=== PATIENT | male | born 1970 | race Caucasian/White ===

== ENCOUNTER → 2017-04-18 | Outpatient (CLI) | payer OTHER ==
[~2017-04-18] MED LIST: ALBU90OI INH; DESYREL PO; Desyrel150 MG PO; EYE DROPS ADVAN15 ML BOTHEYES; FLUT1DIS5 INH; FOLI1 PO; IBUP800 PO; Keppra PO; LIDO5TP TOP; LISI20 PO; Naprosyn500 MG PO; Omeprazole20 M1 PO; PANT40 PO; THIA100 PO; VITAMIN B-121000 MCG PO
[2017-04-18 11:26] LABS: Albumin, Blood 3.5 g/dL (3.4-5.0); Anion Gap 7 mmol/L (6-16); Blood Urea Nitrogen 18 mg/dL (8-24); Bun/Creatinine Ratio 15.8 (12.0-20.0); CO2, Blood 22 mmol/L (21-32); Calcium, Blood 9.6 mg/dL (8.5-10.1); Chloride, Blood 105 mmol/L (98-108); Creatinine, Blood 1.14 mg/dL (0.60-1.20); Glomerular Filtration Rate >60 (60-); Glucose, Blood 114 mg/dL (70-99); Phosphorus, Blood 3.6 mg/dL (2.5-4.9); Potassium, Blood 4.7 mmol/L (3.5-5.5); Sodium, Blood 134 mmol/L (136-145)
[2017-04-18 16:07] LABS: Creatinine, Urine Random 60.4 mg/dL (27.00-270.00); Protein, Urine Random 29.6 mg/dL (0.0-11.9)
== END | disposition home or self-care (01) ==
LOC: OLS 09:40
PROVIDERS: Internal Medicine
DX: N18.9 Chronic kidney disease, unspecified (principal)
CPT/HCPCS: 36415; 80069; 82570; 84156

== ENCOUNTER 2018-05-14 15:42 | Inpatient (IN) | payer OTHER ==
[~2018-05-14] VITALS: Ht 175.3 cm; Wt 99.2 kg
[2018-05-14 16:52] LABS: BASOPHILS ABSOLUTE AUTO 0.04 K/mm3 (0.00-0.23); BASOPHILS PERCENT AUTO 0 % (0-2); EOSINOPHILS ABSOLUTE AUTO 0.04 K/mm3 (0.00-0.68); EOSINOPHILS PERCENT AUTO 0 % (0-6); Hematocrit 33.8 % (37.0-53.0); Hemoglobin 11.5 g/dL (13.5-17.5); IMMATURE GRAN ABSOLUTE AUTO 0.26 K/mm3 (0.00-0.10); IMMATURE GRAN PERCENT AUTO 2 % (0-1); LYMPHOCYTES ABSOLUTE AUTO 1.04 K/mm3 (0.84-5.20); LYMPHOCYTES PERCENT AUTO 8 % (21-46); MONOCYTES ABSOLUTE AUTO 0.85 K/mm3 (0.16-1.47); MONOCYTES PERCENT AUTO 6 % (4-13); Mean Corpuscular Volume 103 fL (80-100); Mean Platelet Volume 10.2 fL (9.1-12.4); NEUTROPHILS ABSOLUTE AUTO 11.35 K/mm3 (1.96-9.15); NEUTROPHILS PERCENT AUTO 84 % (41-73); Platelet Count 158 K/mm3 (150-400); RDW Coefficient Variation 14.2 % (11.7-14.2); RDW Standard Deviation 54.2 fL (35.1-46.3); Red Blood Cell Count 3.29 M/mm3 (4.30-5.90); White Blood Cell Count 13.58 K/mm3 (4.00-11.30)
[2018-05-14 17:21] LABS: Alanine Aminotransfer (ALT/SGP 68 U/L (12-78); Albumin, Blood 1.9 g/dL (3.4-5.0); Albumin/Globulin Ratio 0.3 (0.8-1.8); Alk Phos 211 U/L (50-136); Anion Gap 7 mmol/L (6-16); Aspartate Aminotrans (AST/SGOT 156 U/L (12-37); Blood Urea Nitrogen 29 mg/dL (8-24); CO2, Blood 20 mmol/L (21-32); Calcium, Blood 8.3 mg/dL (8.5-10.1); Chloride, Blood 105 mmol/L (98-108); Globulin, Blood 6.9 g/dL (2.2-4.0); Glomerular Filtration Rate >60 (60-); Glucose, Blood 92 mg/dL (70-99); Sodium, Blood 132 mmol/L (136-145); Total Protein, Blood 8.8 g/dL (6.4-8.2)
[2018-05-14 18:18] LABS: Source, Urine Clean Catch
[2018-05-14 18:23] LABS: Blood, Urine Neg (Neg); Glucose Qualitative, Urine Neg (Neg); Ketones, Urine Neg (Neg); Leukocyte Esterase, Urine 1+ (Neg); Nitrite, Urine Neg (Neg); Protein, Urine 2+ (Neg); Urobilinogen, Urine 2+ (Normal); pH, Urine 6.5 (5.0-8.0)
[2018-05-14 18:32] LABS: Appearance, Urine Clear (Clear); Bilirubin, Urine 3+ (Neg); Color, Urine Yellow (P-Yellow)
[2018-05-14 18:33] LABS: Bacteria Few /hpf; Red Blood Cells, Urine 0-2 /hpf (0-2); Squamous Epithelial Cells Rare /hpf (Few); White Blood Cells, Urine 0-2 /hpf (0-5)
--- NOTE | 2018-05-15 05:00 | NUR ---
SHIFT SUMMARY 2219 RECEIVED PT TO RM 358 VIA W/C FROM ER. PT TX SELF TO BED WITH SBA. PT THEN TO [facility] [place] FOR BM. RECEIVED REPORT FROM SWATHI LONDON, PT TO ER WITH C/O ABD PAIN. HX OF CIRRHOSIS, ASCITES, AND ELEVATED LIVER ENZYMES. SKIN JAUNDICE. CT DONE IN ER SHOWING MASS ON LUNGS; POSSIBLE PNM OR BIOPSY TO BE DONE IF DOESN'T RESPOND TO ABX. PT REPORTED PAIN WITH COUGHING AND DEEP BREATHING. DR ANDERSON NOTIFIED. NEW ORDERS RECEIVED. PT REPORTED DRINKING ALCOHOL DAILY, EXCEPT FOR PAST 2 DAYS, HE HASN'T FELT WELL. S/O TO RM WITH PT, BUT LEFT AFTER ADMIT COMPLETE. PT WENT TO SLEEP AFTER SOUP AND SANDWICH GIVEN. DENIED FURTHER NEEDS. CALL LT IN REACH.
[2018-05-15 05:58] LABS: BASOPHILS ABSOLUTE AUTO 0.02 K/mm3 (0.00-0.23); BASOPHILS PERCENT AUTO 0 % (0-2); EOSINOPHILS ABSOLUTE AUTO 0.12 K/mm3 (0.00-0.68); EOSINOPHILS PERCENT AUTO 1 % (0-6); Hematocrit 27.6 % (37.0-53.0); Hemoglobin 9.2 g/dL (13.5-17.5); IMMATURE GRAN ABSOLUTE AUTO 0.19 K/mm3 (0.00-0.10); IMMATURE GRAN PERCENT AUTO 2 % (0-1); LYMPHOCYTES ABSOLUTE AUTO 0.92 K/mm3 (0.84-5.20); LYMPHOCYTES PERCENT AUTO 10 % (21-46); MONOCYTES ABSOLUTE AUTO 0.64 K/mm3 (0.16-1.47); MONOCYTES PERCENT AUTO 7 % (4-13); Mean Corpuscular HGB 34.1 pg (26.0-34.0); Mean Corpuscular HGB Conc 33.3 g/dL (31.5-36.5); Mean Corpuscular Volume 102 fL (80-100); NEUTROPHILS ABSOLUTE AUTO 7.42 K/mm3 (1.96-9.15); NEUTROPHILS PERCENT AUTO 80 % (41-73); Platelet Count 115 K/mm3 (150-400); RDW Coefficient Variation 14.5 % (11.7-14.2); White Blood Cell Count 9.31 K/mm3 (4.00-11.30)
[2018-05-15 06:14] LABS: International Normalized Ratio 1.69; Prothrombin Time Results 17.1 Sec (9.7-11.5)
[2018-05-15 06:26] LABS: Alanine Aminotransfer (ALT/SGP 50 U/L (12-78); Albumin, Blood 1.4 g/dL (3.4-5.0); Albumin, Blood 1.5 g/dL (3.4-5.0); Albumin/Globulin Ratio 0.3 (0.8-1.8); Alk Phos 155 U/L (50-136); Anion Gap 9 mmol/L (6-16); Aspartate Aminotrans (AST/SGOT 111 U/L (12-37); Bilirubin, Total 6.5 mg/dL (0.1-1.0); Blood Urea Nitrogen 31 mg/dL (8-24); Bun/Creatinine Ratio 28.7 (12.0-20.0); CO2, Blood 17 mmol/L (21-32); Calcium, Blood 7.7 mg/dL (8.5-10.1); Chloride, Blood 112 mmol/L (98-108); Creatinine, Blood 1.08 mg/dL (0.60-1.20); Globulin, Blood 5.4 g/dL (2.2-4.0); Glomerular Filtration Rate >60 (60-); Glucose, Blood 81 mg/dL (70-99); Potassium, Blood 4.7 mmol/L (3.5-5.5); Sodium, Blood 138 mmol/L (136-145); Total Protein, Blood 6.8 g/dL (6.4-8.2)
--- NOTE | 2018-05-15 11:46 | NUR ---
Patient granted permission for me to care for him.
[2018-05-15 13:05] LABS: Campylobacter Sp Detected (NOT DETECT); Cryptosporidium Not Detected (NOT DETECT); Cyclospora Cayetanensis Not Detected (NOT DETECT); E. Coli O157 Not Detected (NOT DETECT); Entamoeba Histolytica Not Detected (NOT DETECT); Enteroaggregative E. coli-EAEC Not Detected (NOT DETECT); Enteropathogenic E. coli-EPEC Not Detected (NOT DETECT); Enterotoxigenic E. coli-ETEC Not Detected (NOT DETECT); Plesiomonas Shigelloides Not Detected (NOT DETECT); Salmonella Sp Not Detected (NOT DETECT); Shiga Toxin-prod E. coli-STEC Not Detected (NOT DETECT); Shigella/Enteroin E. coli-EIEC Not Detected (NOT DETECT); Vibrio Cholerae Not Detected (NOT DETECT); Vibrio Sp Not Detected (NOT DETECT); Yersinia Enterocolitica Not Detected (NOT DETECT)
[2018-05-15 13:06] LABS: Adenovirus F 40/41 Not Detected (NOT DETECT); Astrovirus Not Detected (NOT DETECT); Giardia Lamblia Not Detected (NOT DETECT); Norovirus GI/GII Not Detected (NOT DETECT); Rotavirus A Not Detected (NOT DETECT); Sapovirus Not Detected (NOT DETECT)
--- NOTE | 2018-05-15 15:53 | NUR ---
NOTIFIED DR DIEHL THAT PT IS REQUESTING "INHALER" AND AT HOME USES ALBUTEROL 1-2 ACT INF Q6H PRN FOR SOB. NEW ORDERS FOR ALBUTEROL UPDRAFT ENTERED. WILL CONTINUE TO MONITOR.
--- NOTE | 2018-05-15 18:12 | NUR ---
SHIFT SUMMARY PT A&OX4. CALM AND COOPERATIVE WITH CARE. PT RESTING IN BED DURING SHIFT, UP TO BATHROOM IND. PT REPORTS CHRONIC HEADACHE AND PAIN IN RIB/BREATHING/COUGHING, MEDICATED X2 WITH NORCO, WITH POSITIVE RESULTS. PT SOB THIS AFTERNOON, USES INHALER AT HOME, NOTIFIED DR DIEHL, NEW ORDERS ENTERED, PT RECEIVED BREATHING TREATMENT PER RT. PT DENIES N/V DURING SHIFT. PT RECEIVING IV ANTIBIOTICS. ACITES NOTED, ABD MODERATE DISTENTION, FIRM, TENDER. PT JAUNDICE. CIWA 4-6 DURING SHIFT. ELEVATED HR NOTED, VSS. NO OTHER ACUTE CHANGES NOTE DURING SHIFT. WILL CONTINUE TO MONITOR UNTIL REPORT GIVEN TO ONCOMING RN.
--- NOTE | 2018-05-15 19:13 | NUR ---
NOTIFIED DR DIEHL, PT REQUESTING SHOWER, NEW ORDERS ENTERED.
--- NOTE | 2018-05-16 04:06 | NUR ---
PT MEDICATED FOR PAIN X1 DURING SHIFT. PT SLEPT MOST THE NIGHT. NO OTHER COMPLAINTS. ABD TENDER WHEN PALPATED. JAUNDACED APPEARANCE. MEDICATED PER EMAR. INDEPENDENT IN ROOM. CALL LIGHT IN REACH
--- NOTE | 2018-05-16 09:28 | NUR ---
EMESIS X1 AFTER MEDICATION ADMIN AND SMALL AMOUNT OF BREAKFAST. REFUSED OFFER FOR NAUSEA MEDICATION.
--- NOTE | 2018-05-16 11:00 | NUR ---
HYPOTENSION AND TACHYCARDIA WITH BLOODY EMESIS AND WEAKNESS REPORTED TO DR. DIEHL. NEW ORDERS RECEIVED.
[2018-05-16 11:55] LABS: Hematocrit 23.8 % (37.0-53.0); Hemoglobin 7.8 g/dL (13.5-17.5)
--- NOTE | 2018-05-16 12:35 | NUR ---
SPOKE WITH DR. RAMOS PT TO GO TO EDG AT 14:30.
[2018-05-16 12:52] LABS: Mean Platelet Volume 10.5 fL (9.1-12.4); Platelet Count 160 K/mm3 (150-400)
--- NOTE | 2018-05-16 13:24 | NUR ---
REPORT FROM LITA HAYDEN. PATIENT BEING TRANSFERRED TO ICU 2 FOR HEMATEMESIS WITH HYPOTENSION AND DROP IN H/H.
--- NOTE | 2018-05-16 13:30 | NUR ---
PT TRANSFERRED TO ICU BEDSIDE AND PHONE REPORT GIVEN TO LITA SAAVEDRA
--- NOTE | 2018-05-16 14:16 | NUR ---
PATIENT ARRIVED ICU 2 APPROX 1332. A&O, JAUNDICED. WAS ABLE TO AMBULATE TO THE ICU BED FROM THE MEDICAL BED ONCE IT WAS DETERMINED HE WAS NOT DIZZY. ON PROTONIX GTT AND SANDOSTATIN GTT. WARM BLANKETS PROVIDED. BLOOD CONSENT OBTAINED. IN FOR SHORT VISIT WHILE DAY SURGERY TEAM SETTING UP. CONFIRMED PATIENT HAS BEEN TYPED AND CROSSED.
--- NOTE | 2018-05-16 14:22 | NUR ---
APRIL FROM DAY SURGERY PLACED 18 GA RIGHT FA.
--- NOTE | 2018-05-16 14:44 | NUR ---
05/16/18 1444 Cody Faye 3-LEAD EKG REVIEWED WITH PHYSICIAN PRIOR TO START OF PROCEDURE. PATIENT CONFIRMS NPO STATUS AND AGREES WITH SCHEDULED PROCEDURE. History, Chart, Medications and Allergies reviewed before start of procedure.MONITOR INTACT WITH CONTINUOUS PULSE OXIMETRY AND INTERMITTENT BP.O2 VIA N/C INTACT THROUGHOUT SEDATION/PROCEDURE. Bite Block Placed See Anesthesia record
--- NOTE | 2018-05-16 14:53 | NUR ---
DR. RAMOS PERFORMING EGD WITH ANETHELISSA DR. RIDDLE.
--- NOTE | 2018-05-16 14:56 | NUR ---
EGD COMPLETE. NO ACTIVE BLEEDING
[2018-05-16 18:19] LABS: Hematocrit 22.2 % (37.0-53.0); Hemoglobin 7.3 g/dL (13.5-17.5)
--- NOTE | 2018-05-16 18:41 | NUR ---
ASSISTED TO TOILET TO HAVE BM. DENIES DIZZINESS.
--- NOTE | 2018-05-16 21:45 | NUR ---
ASSUMING CARE RECEVIED PT REPROT FROM LITA SAAVEDRA. PT IS ADMITTRED DUE TO A GI BLEED. PER REPROT PT WAS TRANSFERED TO ICU FOR AN UPPER GI SCOPE AFTER RED BLOODY EMISIS ON OTHER FLOOR. PT IS ALERT AND ORIENTED AT THE TIME CARE ASSUMED. PT IS ABLE TO USE CALL LIGHT AND MAKE NEDS KNOWN. PT IS ABLE TO REPOSITION SELF IN BED WITHOUT ASSISTANCE. PT HAS ORDER TO TRANSFUSE 1 UNIT PRBCS. BLOOD RECEIVED AND 2 RN VERIFICATION DONE SHORTLY AFTER CARE ASSUMED. REFER TO TRANSFUSION CHARTING FOR TIMES AND DETAILS. PT IS RECEIVING UNIT OF BLOOD AT THIS TIME. PT IS RECIVING NS AT 150ML/HR AND PROTONIX AT 10ML/HR. PT IS ON ROOM AIR WITH SPO2 MAINTAINING IN THE MID TO HIGH 90'S. PT HR IS IN THE 90'S TO LOW 100'S AT THIS TIME. PT BP HAS BEEN OBSERVED TO BE IN THE 90'S TO 130'S AT TIMES. STABLE AT THIS TIME. ASSUMING CARE OF PT AT THE TIME OF SHIFT REPORT. WILL CONTINUE TO MONITOR PT.
[2018-05-17 03:37] LABS: Hematocrit 22.6 % (37.0-53.0); Hemoglobin 7.5 g/dL (13.5-17.5); Mean Corpuscular HGB 33.5 pg (26.0-34.0); Mean Corpuscular HGB Conc 33.2 g/dL (31.5-36.5); Mean Corpuscular Volume 101 fL (80-100); Mean Platelet Volume 10.2 fL (9.1-12.4); Platelet Count 157 K/mm3 (150-400); RDW Coefficient Variation 17.3 % (11.7-14.2); RDW Standard Deviation 64.6 fL (35.1-46.3); Red Blood Cell Count 2.24 M/mm3 (4.30-5.90); White Blood Cell Count 11.84 K/mm3 (4.00-11.30)
[2018-05-17 03:56] LABS: Albumin, Blood 1.3 g/dL (3.4-5.0); Anion Gap 8 mmol/L (6-16); Blood Urea Nitrogen 40 mg/dL (8-24); Bun/Creatinine Ratio 25.2 (12.0-20.0); CO2, Blood 16 mmol/L (21-32); Calcium, Blood 7.2 mg/dL (8.5-10.1); Chloride, Blood 114 mmol/L (98-108); Creatinine, Blood 1.59 mg/dL (0.60-1.20); Glomerular Filtration Rate 50 (60-); Glucose, Blood 110 mg/dL (70-99); Phosphorus, Blood 3.7 mg/dL (2.5-4.9); Potassium, Blood 4.8 mmol/L (3.5-5.5); Sodium, Blood 138 mmol/L (136-145)
--- NOTE | 2018-05-17 05:47 | NUR ---
SHIFT SUMMARY NOTE PT HAS REMAIEND ALERT AND ORIENTED THROUGH THE NIGHT WHILE AWAKE. PT WAS PROVIDED 1 UNIT PRBC'S. REFER TO TRANSFUSION CHARTING FOR TIMES AND DETAILS. PT HR HAS REMAIEND STABLE IN THE 90'S THROUGH THE NIGHT. PT BP HAS MAINTAINED IN THE 90-110'S THROUGH MUCH OF THE NIGHT. PT HAS REMAINED ON ROOM AIR THROUGHOUT THE NIGHT, WITH SPO2 IN THE MID TO HIGH 90'S. LUNG SOUNDS HAVE REMAEND CLEAR. PT HAS BEEN ABLE TO USE THE URINAL THROUGHOUT THE NIGHT WITH MINIMAL ASSISTANCE WITH LINES, PT URINE IS VERY DARK ORANGE, PT VOIDS APPROX 100-150ML EACH VOID. PT IS RECEIVING NS AT 150ML/HR, AND PROTONIX AT 10ML/HR. PT DAUGHTER HAS REMAINED AT BEDSIDE THROUGHOUT THE NIGHT. WILL REPORT OFF TO ONCOMING DAY SHIFT NURSE.
--- NOTE | 2018-05-17 07:21 | NUR ---
ASSUMED CARE: PT RESTING QUIETLY IN BED WATCHING TV. DAUGHTER AT BEDSIDE AT THIS TIME. PROTONIX GTT AND NS RUNNING. VSS. NO ACUTE NEEDS OR CONCERNS AT THIS TIME.
[2018-05-17 09:11] LABS: Hematocrit 24.7 % (37.0-53.0); Hemoglobin 8.2 g/dL (13.5-17.5)
--- NOTE | 2018-05-17 14:09 | NUR ---
REPORT CALLED TO LITA CHILD. PT TRANSPORTED VIA WHEEL CHAIR TO NEW ROOM. FAMILY AWARE OF TRANSFER
--- NOTE | 2018-05-17 18:56 | NUR ---
PATIENT TRANSFERRED THIS AFTERNOON. HE IS ALERT AND ORIENTED. HE HAS NO COMPLAINTS WHILE HERE AND HAS HAD FAMILY AT BEDSIDE.
--- NOTE | 2018-05-18 04:47 | NUR ---
SHIFT SUMMARY NO APPARENT ACUTE CHANGES NOTED SO FAR THIS SHIFT. PT ORIGINALLY ADMITTED FOR SEPSIS. DNR. FULL LUIQUID 2 GRAM LOW SODIUM DIET. 1 PERSON STANDBY TO INDEPENDENT WITH TRANSFERS. MEDS WHOLE WITH WATER. 20G IV TO L AC, AND 18 GIV TO R FA. PT NOTED TO HAVE RIGHT MIDDLE LOBE PNEUMONIA WHICH THE PT CONTINUES TO REPORT A COUGH FOR INCREASING ABD DISCOMFORT AND CAUSING SOME PAIN TO RIBS. PT ALLOS NOTED TO HAVE UPPER GI BLEED DUE TO EROSIVE GASTRITIS, ESOPHAGITIS/ULCERATION, AND CHRONIC HEPC WITH ALCOHOLIC LIVER CIRRHOSIS. THE PT CONTINUES TO HAVE BLACK STOOLS. PTS ABD COMINTUES TO BE DISTENDED AND SKIN JAUNDICE. THE PTS WAS AT BEDSIDE UNTIL LATE IN THE [place]. THE PT IS CONCEARNED BECAUSE NO LABS HAVE ORDERED FOR PT OF YET AND PT REPORTED TO BE WAITING ON THESE LABS TO BE ABLE TO DC. ADVISED PT AND THAT THIS NURSE WILL ENSURE THAT DAY NURSE IS AWARE SO THAT MD CAN ADDRESS THIS IF WISHES ARE TO DRAW LABS PT AND STATED. THE PT APPEARED TO SLEEP COMFORTABLY THROUGHOUT THE NIGHT. NO APPARENT SIGNS OF ACUTE DISTRESS. MEDICATED FOR PAIN X1. ABLE TO MAKE NEEDS KNOWN AND CALL LIGHT IN REACH.
[2018-05-18 11:21] LABS: Hematocrit 22.5 % (37.0-53.0); Hemoglobin 7.4 g/dL (13.5-17.5); Mean Corpuscular HGB 32.9 pg (26.0-34.0); Mean Corpuscular HGB Conc 32.9 g/dL (31.5-36.5); Mean Corpuscular Volume 100 fL (80-100); Mean Platelet Volume 10.1 fL (9.1-12.4); Platelet Count 167 K/mm3 (150-400); RDW Coefficient Variation 17.3 % (11.7-14.2); RDW Standard Deviation 64.1 fL (35.1-46.3); Red Blood Cell Count 2.25 M/mm3 (4.30-5.90); White Blood Cell Count 9.21 K/mm3 (4.00-11.30)
[2018-05-18 12:12] LABS: BASOPHILS ABSOLUTE AUTO 0.05 K/mm3 (0.00-0.23); BASOPHILS PERCENT AUTO 0 % (0-2); EOSINOPHILS ABSOLUTE AUTO 0.09 K/mm3 (0.00-0.68); EOSINOPHILS PERCENT AUTO 1 % (0-6); Hematocrit 25.6 % (37.0-53.0); Hemoglobin 8.4 g/dL (13.5-17.5); IMMATURE GRAN ABSOLUTE AUTO 0.11 K/mm3 (0.00-0.10); IMMATURE GRAN PERCENT AUTO 1 % (0-1); LYMPHOCYTES ABSOLUTE AUTO 1.36 K/mm3 (0.84-5.20); LYMPHOCYTES PERCENT AUTO 10 % (21-46); MONOCYTES ABSOLUTE AUTO 0.77 K/mm3 (0.16-1.47); MONOCYTES PERCENT AUTO 6 % (4-13); Mean Corpuscular HGB 33.7 pg (26.0-34.0); Mean Corpuscular HGB Conc 32.8 g/dL (31.5-36.5); NEUTROPHILS ABSOLUTE AUTO 11.07 K/mm3 (1.96-9.15); NEUTROPHILS PERCENT AUTO 82 % (41-73); Platelet Count 213 K/mm3 (150-400); RDW Coefficient Variation 17.6 % (11.7-14.2); RDW Standard Deviation 66.3 fL (35.1-46.3); Red Blood Cell Count 2.49 M/mm3 (4.30-5.90); White Blood Cell Count 13.45 K/mm3 (4.00-11.30)
[2018-05-18 12:13] LABS: Mean Corpuscular Volume 103 fL (80-100)
[2018-05-18 12:25] LABS: International Normalized Ratio 1.56; Prothrombin Time Results 15.9 Sec (9.7-11.5)
[2018-05-18 12:36] LABS: Albumin, Blood 1.6 g/dL (3.4-5.0); Albumin/Globulin Ratio 0.3 (0.8-1.8); Bilirubin, Total 11.6 mg/dL (0.1-1.0); Calcium, Blood 7.8 mg/dL (8.5-10.1); Creatinine, Blood 1.68 mg/dL (0.60-1.20); Globulin, Blood 6.3 g/dL (2.2-4.0); Potassium, Blood 4.8 mmol/L (3.5-5.5); Total Protein, Blood 7.9 g/dL (6.4-8.2)
[2018-05-18 15:08] LABS: Automated BF WBC Count 0.074 K/mm3 (0-999); Body Fluid WBC Count 74 /mm3 (0-999)
[2018-05-18 15:23] LABS: Lactate Dehydrogenase, Body Fl 34 U/L; Protein, Body Fluid 0.4 g/dL
[2018-05-18 16:38] LABS: Appearance, Body Fluid Clear (Clear); Color, Body Fluid L Yellow (None-Yellow); RBC Count, Body Fluid 12 /mm3 (0-0); Total Cell Count, Body Fluid 100
--- NOTE | 2018-05-18 18:46 | NUR ---
SUMMARY PT RESTING QUIETLY IN BED, FINISHED EATING HIS DINNER, PT HAS BEEN MOSTLY INDEPENDENT IN THE ROOM, IS COOPERATIVE WITH CARE, ASKS MANY QUESTIONS REGARDING HIS CARE AND OFTEN REPEATS THE SAME QUESTIONS, FAMILY HAS BEEN IN TO VISIT SEVERAL TIMES TODAY, PT WENT FOR A PARACENTESIS WITH GOOD OUTCOME TODAY, PT MED PER EMAR FOR PAIN, PT HAS DENIED ANY NAUSEA, VSS, NO ACUTE CHANGES, WILL CONT TO MONITOR
--- NOTE | 2018-05-18 18:53 | NUR ---
Spoke with patient and spouse. Discussed POLST matters. Pt is a DNR. Stressed to patient that a POLST document would be helpful in protecting the patient from CPR and intubation. Pt appears to be irritated at this time, related to conversation he was having with family member. He prefers not to discuss this further with me at this time, but allowed me to leave the POLST and booklet 'Life Sustaining Treatments.' Will remain available.
--- NOTE | 2018-05-19 06:40 | NUR ---
VSS, AFEBRILE, A/O, 20 L ARM, 18G R ARM, SBA TO BR, SEVERAL IVABX, NS @ 125, FAMILY INVOLVED IN CARE, PT HAS A LETTER FROM THE DEPT OF HEALTH THAT IS IN HIS CHART CONCERNING ISODLATION (?) NEEDS INFECTION CONTROL INTERVENTION. SLEPT WELL AFTER MIDNOC.
[2018-05-19 09:27] LABS: BASOPHILS ABSOLUTE AUTO 0.02 K/mm3 (0.00-0.23); BASOPHILS PERCENT AUTO 0 % (0-2); EOSINOPHILS ABSOLUTE AUTO 0.09 K/mm3 (0.00-0.68); EOSINOPHILS PERCENT AUTO 1 % (0-6); Hematocrit 23.7 % (37.0-53.0); Hemoglobin 7.6 g/dL (13.5-17.5); IMMATURE GRAN ABSOLUTE AUTO 0.07 K/mm3 (0.00-0.10); IMMATURE GRAN PERCENT AUTO 1 % (0-1); LYMPHOCYTES ABSOLUTE AUTO 1.09 K/mm3 (0.84-5.20); LYMPHOCYTES PERCENT AUTO 11 % (21-46); MONOCYTES ABSOLUTE AUTO 0.58 K/mm3 (0.16-1.47); MONOCYTES PERCENT AUTO 6 % (4-13); Mean Corpuscular HGB 33.3 pg (26.0-34.0); Mean Corpuscular HGB Conc 32.1 g/dL (31.5-36.5); Mean Corpuscular Volume 104 fL (80-100); Mean Platelet Volume 9.8 fL (9.1-12.4); NEUTROPHILS PERCENT AUTO 81 % (41-73); Platelet Count 191 K/mm3 (150-400); RDW Coefficient Variation 17.3 % (11.7-14.2); RDW Standard Deviation 65.1 fL (35.1-46.3); Red Blood Cell Count 2.28 M/mm3 (4.30-5.90); White Blood Cell Count 9.85 K/mm3 (4.00-11.30)
[2018-05-19 09:42] LABS: Albumin, Blood 1.8 g/dL (3.4-5.0); Albumin/Globulin Ratio 0.3 (0.8-1.8); Bilirubin, Total 11.4 mg/dL (0.1-1.0); Bun/Creatinine Ratio 23.5 (12.0-20.0); Calcium, Blood 7.7 mg/dL (8.5-10.1); Creatinine, Blood 1.62 mg/dL (0.60-1.20); Potassium, Blood 5.1 mmol/L (3.5-5.5); Total Protein, Blood 7.8 g/dL (6.4-8.2)
--- NOTE | 2018-05-19 18:27 | NUR ---
PT A/OX3, PLEASANT AND COOPERATIVE, THE PT IS UP IND IN HIS ROOM, THE PTS ABD IS GROSSLY DISTENEDE AND FIRM, THE PT HAS BEEN MEDICATED ORDERED FOR ABD PAIN, NO N/V T/O THE DAY SEEN, THE PT IS SOB WITH ACTIVITY OTHERWISE APPEARS TO BE BREATHING EASILY ON RA, LYNETTE FAMILY AT THE BEDSIDE, CALL LIGHT IN REACH WILL CONTINUE TO MONITOR AND ASSESS FOR CHANGES
[2018-05-20 05:00] LABS: Hematocrit 21.7 % (37.0-53.0); Hemoglobin 7.2 g/dL (13.5-17.5); Mean Corpuscular HGB Conc 33.2 g/dL (31.5-36.5); Platelet Count 192 K/mm3 (150-400); RDW Coefficient Variation 16.8 % (11.7-14.2); RDW Standard Deviation 61.7 fL (35.1-46.3); Red Blood Cell Count 2.18 M/mm3 (4.30-5.90); White Blood Cell Count 10.73 K/mm3 (4.00-11.30)
[2018-05-20 05:05] LABS: Mean Corpuscular Volume 100 fL (80-100)
[2018-05-20 05:20] LABS: Albumin, Blood 1.7 g/dL (3.4-5.0); Anion Gap 10 mmol/L (6-16); Blood Urea Nitrogen 39 mg/dL (8-24); Bun/Creatinine Ratio 22.4 (12.0-20.0); CO2, Blood 18 mmol/L (21-32); Calcium, Blood 7.6 mg/dL (8.5-10.1); Chloride, Blood 105 mmol/L (98-108); Creatinine, Blood 1.74 mg/dL (0.60-1.20); Glomerular Filtration Rate 45 (60-); Glucose, Blood 143 mg/dL (70-99); Potassium, Blood 4.7 mmol/L (3.5-5.5); Sodium, Blood 133 mmol/L (136-145)
--- NOTE | 2018-05-20 06:07 | NUR ---
VSS, AFEBRILE, A/O, SBA TO BSC, DARK URINE, HGB/HCT/ALBUMIN LOW THIS A.M., IVF @ 125, 20G L ARM, 18G R ARM, JAUNDICE, ASCITES, FREQ IV MEDS, BILAT LE EDEMA, FAMILY INVOLVED IN CARE. PMHX OF HEP C, CIRRHOSIS, ASCITES.
[2018-05-20 15:04] LABS: Hematocrit 19.7 % (37.0-53.0); Hemoglobin 6.5 g/dL (13.5-17.5)
--- NOTE | 2018-05-20 15:53 | NUR ---
PT TRANSFERED TO THE PCU AT AROUND 1400 REPORT WAS GIVEN TO LITA MCNAIR AND THE PT WAS TRANSFERD TO THE PCU, THE PT WAS A/OX3 AT THE TIME OF THE TRANSFER, THE PT WAS RECIEVING 1 UNIT OF PRBC'S THIS AM, WHEN TOWARD THE END OF THE INFUSION HE STARTED TO VOMIT BIRGHT FRACATRACHITO BLOOD, DR. DIEHL AND DR. RAMOS BOTH SEEN THE PT , AND IT WAS DETERMINED THAT THE PT NEEDED CLOSER OBSERVATION AND WAS SENT TO THE PCU, A PROTONIX BOLUS WAS GIVEN AND A PROTONIX DRIP WAS STARTED PRIOR TO TRANSFER WELL ALBUMIN, THE PT WAS MEDICATED FOR NAUSEA AND WAS GIVEN TYLENOL FOR TEMP OF 100.1 ASLO PRIOR TO THE TRANSFER, MULTIPLE FAMILY AT THE BEDSIDE AT THE TIME OF THE TRANSFER
--- NOTE | 2018-05-20 18:45 | NUR ---
SHIFT SUMMARY Assumed care of pt at 1405 from Pedrito LONDON on medical floor. Pt arrived to unit with several family members. Alert and oriented. Room air. Pt had one episode of emesis of about 200 mL bright red with chunks that resembled clots. Emerald per orders. This RN placed call to Dr Nunez to notify of drop in H&H. New orders entered by provider. Update given to pt and family. Unable to collect urinalysis as pt has not urinated since arrival to unit. Pt and family state he has had decreased urine output. Pt currently receiving 1 unit PRBC and will recieve another once this unit is done. Also recieving sandostatin and pantoprazole. No BM since arrival to unit. Bed in lowest position. Pt independent when family in room. Family helpful and involved in pt's care. Call light in reach. Will continue to closely monitor until care handoff and bedside report with oncoming RN. No signs or symptoms of alcohol withdrawal.
--- NOTE | 2018-05-20 23:57 | NUR ---
ASSUMED CARE OF PATIENT AT APPROXIMATELY 1905 FROM TONNY Alonzo RN. PATIENT ALERT AND ORIENTED X4; DROWSY AT TIMES; EASILY FALLS ASLEEP WHEN STAFF IN ROOM. PATIENT REPORTS PAIN 9/10 IN ABDOMEN THAT HAS BEEN OCCURING FOR DAYS; REPORTS A MINUTE LATER THAT HE IS TIRED OF ABDOMEN BEING NUMB; REPORTS SHE FEELS PATIENT NEEDS IV PAIN MEDICATION. PATIENT REPORTS FEELING UNCOMFORTABLE IN BED; FOAM APPLIED TO MATTRESS WITH GOOD RESULTS. PATIENT REPORTS NAUSEA; MEDICATED PER EMAR. ONE UNIT OF RBC FINISHED INFUSING AT SHIFT CHANGE; ONE MORE RBC UNIT COMPLETED AT 2330; THIS RN STAYED IN ROOM FOR THE FIRST 15 MINTUES OF TRANFUSION ON SECOND RBC; NO S/S OF ADVERSE REACTION NOTED. LAB TO DRAW H/H ONE HOUR POST INFUSION AT 0030. PATIENT URINATED 100 ML OF DARK COLA COLORED URINE; REPORTS THAT PATIENT DOESN'T URINATE OFTEN; I AND O REVIEWED AND PATIENT URINATES 1-2 TIMES DAILY; LABORATORY TECH NO AWARE SAMPLE NEEDED; WILL COLLECT NEXT SPECIMEN. PATIENT WEAK; 2 ASSIST OUT OF BED; PATIENT SAT IN RECLINER WHILE STAFF PUT FOAM ON MATTRESS. IV PROTONIX, IV OCTREOTIDE AND IVF INFUSING PER ORDER. PATIENT REPORTS HE HAS SOB OCCASIONLLY THAT STARTED THIS MORNING. DR. DIELH CALLED TO CHANGE IV ZOFRAN FROM SCHEDULED EVERY SIX HOURS TO PRN EVERY FOUR HOURS. BEDSIDE WITH PATIENT. PATIENT CURRENTLY SLEEPING IN BED; CALL LIGHT IN REACH; BED IN LOWEST POSISTION; BED ALARM ON; WILL CONTINUE TO MONITOR AND ASSESS UNTIL END OF SHIFT.
[2018-05-21 00:36] LABS: Hematocrit 22.8 % (37.0-53.0); Hemoglobin 7.7 g/dL (13.5-17.5)
[2018-05-21 04:17] LABS: BASOPHILS ABSOLUTE AUTO 0.02 K/mm3 (0.00-0.23); BASOPHILS PERCENT AUTO 0 % (0-2); EOSINOPHILS ABSOLUTE AUTO 0.01 K/mm3 (0.00-0.68); EOSINOPHILS PERCENT AUTO 0 % (0-6); Hematocrit 20.9 % (37.0-53.0); Hemoglobin 7.2 g/dL (13.5-17.5); IMMATURE GRAN ABSOLUTE AUTO 0.09 K/mm3 (0.00-0.10); IMMATURE GRAN PERCENT AUTO 1 % (0-1); LYMPHOCYTES ABSOLUTE AUTO 1.49 K/mm3 (0.84-5.20); LYMPHOCYTES PERCENT AUTO 8 % (21-46); MONOCYTES ABSOLUTE AUTO 1.22 K/mm3 (0.16-1.47); MONOCYTES PERCENT AUTO 7 % (4-13); Mean Corpuscular HGB 31.7 pg (26.0-34.0); Mean Corpuscular HGB Conc 34.4 g/dL (31.5-36.5); Mean Platelet Volume 10.1 fL (9.1-12.4); NEUTROPHILS ABSOLUTE AUTO 14.98 K/mm3 (1.96-9.15); NEUTROPHILS PERCENT AUTO 84 % (41-73); Platelet Count 184 K/mm3 (150-400); RDW Coefficient Variation 19.9 % (11.7-14.2); RDW Standard Deviation 64.5 fL (35.1-46.3); Red Blood Cell Count 2.27 M/mm3 (4.30-5.90); White Blood Cell Count 17.81 K/mm3 (4.00-11.30)
[2018-05-21 04:36] LABS: Mean Corpuscular Volume 92 fL (80-100)
[2018-05-21 04:58] LABS: CPK Creatine Kinase 109 U/L (39-308)
[2018-05-21 05:52] LABS: Blood, Urine 1+ (Neg); Glucose Qualitative, Urine Neg (Neg); Ketones, Urine 1+ (Neg); Leukocyte Esterase, Urine 2+ (Neg); Nitrite, Urine Neg (Neg); Protein, Urine 2+ (Neg); Urobilinogen, Urine 1+ (Normal)
[2018-05-21 05:56] LABS: Anion Gap 10 mmol/L (6-16); Blood Urea Nitrogen 43 mg/dL (8-24); Bun/Creatinine Ratio 16.7 (12.0-20.0); CO2, Blood 18 mmol/L (21-32); Calcium, Blood 7.4 mg/dL (8.5-10.1); Chloride, Blood 104 mmol/L (98-108); Creatinine, Blood 2.57 mg/dL (0.60-1.20); Glomerular Filtration Rate 29 (60-); Glucose, Blood 75 mg/dL (70-99); Phosphorus, Blood 5.5 mg/dL (2.5-4.9); Sodium, Blood 132 mmol/L (136-145)
[2018-05-21 05:57] LABS: Potassium, Blood 6.9 mmol/L (3.5-5.5)
[2018-05-21 06:02] LABS: Bilirubin, Urine 3+ (Neg)
[2018-05-21 06:08] LABS: Appearance, Urine Hazy (Clear); Bacteria Few /hpf; Color, Urine Amber (P-Yellow); Granular Casts 0-2 /lpf ({null, 0}); Hyaline Casts 0-2 /lpf (0-2); Red Blood Cells, Urine 0-2 /hpf (0-2); Squamous Epithelial Cells Few /hpf (Few)
[2018-05-21 07:08] LABS: Calcium, Blood 7.4 mg/dL (8.5-10.1); Creatinine, Blood 2.39 mg/dL (0.60-1.20); Potassium, Blood 6.5 mmol/L (3.5-5.5)
--- NOTE | 2018-05-21 07:37 | NUR ---
PATIENT'S POTASSIUM CRITICALLY HIGH AFTER BEING WNL SINCE ADMIT; DISCUSSED WITH EMAIL OPERATIONS MANAGER; REDRAWN; POTASSIUM REMAINS CRITICALLY HIGH; DAYSPRLAUREEN RN AWARE. MEDICATED PATIENT WITH PAIN PILLS ONCE LAST NIGHT; PATIENT DROWSY MOST OF THE SHIFT. PATIENT SLEPT ABOUT NINE HOURS LAST NIGHT; URINATED TWICE INTO URINAL WITH TWO ASSIST; DARK COLA COLORED URINE; SAMPLE SENT. REPORT GIVEN TO MARIELOS Alonzo
[2018-05-21 11:08] LABS: Calcium, Blood 7.8 mg/dL (8.5-10.1); Creatinine, Blood 2.94 mg/dL (0.60-1.20); Potassium, Blood 5.8 mmol/L (3.5-5.5)
--- NOTE | 2018-05-21 11:33 | NUR ---
ATTEMPT TO REACH DR JUNIOR Call placed to Dr Junior regarding recent BMP. Message left.
--- NOTE | 2018-05-21 15:09 | NUR ---
BEGINNING OF SHIFT Assumed care of pt at 0700. Bedside report recieved from Cindy LONDON. Notification of critical potassium. This was the second critical potassium as a redraw BMP was ordered after labs resulted earlier this AM. Call placed to Dr Junior cell. Message left. Call placed to Dr Nunez cell. Spoke with provider, no new orders. Dr Junior returned call to notify that new orders had been placed. Both providers aware of redraw. Shift assessment completed. Blood transfusion started. This RN placed call to Dr Junior with high potassium after IV dextrose and insulin, calcium chloride, and bumex. Provider stated she would place new orders. Update given to pt and family. This RN received notification from imaging that pt would not receive a paracentesis today because there is not enough fluid. Pt and family updated. Call placed to Dr Nunez to obtain order for H&H redraw post-tranfusion. Pt reamins on clear liquid diet. Pt reports intermittent nausea. No vomiting this shift. Pt has not yet had a bowel movement. Pt has only had one void of urine this shift which was 100 mL of dark, tea colored urine. Pt has scrotal edema, which he states is new.
[2018-05-21 16:26] LABS: Hematocrit 20.5 % (37.0-53.0); Hemoglobin 6.9 g/dL (13.5-17.5)
[2018-05-21 16:58] LABS: Calcium, Blood 7.6 mg/dL (8.5-10.1); Creatinine, Blood 3.01 mg/dL (0.60-1.20); Potassium, Blood 5.4 mmol/L (3.5-5.5)
--- NOTE | 2018-05-21 19:52 | NUR ---
SHIFT SUMMARY This RN placed call to Dr Junior to notify of "normal" potassium level. New orders placed by provider. This RN placed call to Dr Nunez with results of H&H. New telephone orders received. Dr Tidwell in to see pt today. Provider notified of drop in H&H despite one unit of PRBC administered. Discussed with provider that pt has not had a bowel movmement. Clarified that clear liquid diet is to continue. Dr Tidwell stated it is okay to give the pt prune juice to help with a bowel movement. Update given to family. No s/sx of tranfusion reaction at this time. Report given to Adama LONDON.
[2018-05-21 22:16] LABS: Hematocrit 24.5 % (37.0-53.0); Hemoglobin 8.5 g/dL (13.5-17.5)
[2018-05-22 04:16] LABS: Hematocrit 22.9 % (37.0-53.0); Hemoglobin 7.9 g/dL (13.5-17.5); Mean Corpuscular HGB 31.3 pg (26.0-34.0); Mean Corpuscular HGB Conc 34.5 g/dL (31.5-36.5); Mean Corpuscular Volume 91 fL (80-100); Mean Platelet Volume 9.9 fL (9.1-12.4); Platelet Count 120 K/mm3 (150-400); RDW Coefficient Variation 18.7 % (11.7-14.2); RDW Standard Deviation 58.2 fL (35.1-46.3); Red Blood Cell Count 2.52 M/mm3 (4.30-5.90); White Blood Cell Count 9.22 K/mm3 (4.00-11.30)
[2018-05-22 04:48] LABS: Albumin, Blood 2.1 g/dL (3.4-5.0); Anion Gap 10 mmol/L (6-16); Blood Urea Nitrogen 50 mg/dL (8-24); Bun/Creatinine Ratio 14.9 (12.0-20.0); CO2, Blood 23 mmol/L (21-32); Calcium, Blood 7.1 mg/dL (8.5-10.1); Chloride, Blood 100 mmol/L (98-108); Creatinine, Blood 3.35 mg/dL (0.60-1.20); Glomerular Filtration Rate 21 (60-); Glucose, Blood 134 mg/dL (70-99); Potassium, Blood 4.4 mmol/L (3.5-5.5); Sodium, Blood 133 mmol/L (136-145)
[2018-05-22 06:15] LABS: Phosphorus, Blood 5.8 mg/dL (2.5-4.9)
--- NOTE | 2018-05-22 07:15 | NUR ---
SHIFT SUMMARY PATIENT PLEASENT AND COOPERATIVE THROUGHOUT THE NIGHT. PATIENT'S BLOOD TRANSFUSION COMPLETED. PATIENT HAD LOTS OF FAMILY AND VISITORS THROUGHOUT THE NIGHT. PATIENT'S SANDOSTATIN, PROTONIX AND BICARB RUNNING PER ORDERS. PATIENT APPEARED TO NAP WELL ON AND OFF THROUGHOUT THE NIGHT. PATIENT ABLE TO STAND AT THE EDGE OF THE BED TO USE THE URINAL WITH ONE ASSIST. THIS MORNING PATIENT STATES THAT HE "FEELS REALLY GOOD." PATIENT MEDICATED FOR PAIN PER EMAR. VITAL SIGNS PER EMAR. REPORT GIVEN TO ONCOMING RN.
--- NOTE | 2018-05-22 09:47 | NUR ---
BEGINNING OF SHIFT Assumed care of pt at 0700. Report received from Adama LONDON. Pt in room with several family members arriving and departing t/o the morning. Increased urine output noted in chart. This RN discussess getting pt OOB to ambulate today. Pt is agreeable. States he is not having pain at this time but would like to take pain meds at 1000 and then go for a walk at 1045. Bed in lowest position. Call light in reach. Pt denies need at this time.
--- NOTE | 2018-05-22 15:26 | NUR ---
Met with Man this afternoon in his room. His ex- and two adult daughters are present for the conversation. Man is guarded and abrupt. Asked him what Dr. Nunez had discussed with him this morning. He is angry and states "people are beating around the paulino." Spoke with Dr. Nunez and she reports that she told pt that he is dying. Pt states that he doesn't recall her telling him that he is dying. Explained to him that despite medical efforts his labwork and condition have declined. Asked him what his wishes would be knowing that his condition will continue to deteriorate. He stated that he would want to go home to at home. Hospice has briefly been discussed with pt in the past however pt is worried that OHP won't cover the cost. Explained to him that hospice is covered at 100% regardless of what insurance he has. Reviewed hospice services that are available. Explained to him that he would need to have someone responsible for his care and medications at home with hospice. Pt's two daughters had widened eyes and looked at pt's ex when I said this. Pt's current Deidra is not currently in the hospital. Asked him if he would like this process description writer to call her and explain hospice and Man's choice of considering hospice to her. He stated no, he wanted to call Deidra. Pt is interested in looking into hospice services at this time. His ex- and daughters are supportive of his decision to look into hospice. This process description writer left the room to go and get information re: hospice for pt and family. Pt's ex- came into my office and shared her concern with pt going home with Deidra. Ex states that Deidra is a current drug user and that she and Man's daughters are afraid that Deidra will take the medications for herself and that Man will not get them. His ex wants to respect his wishes to at home, however she doesn't want to see him not get the medications he made need to keep him comfortable. Explained to her that Man will have to have a safe discharge plan to be able to have hospice. This process description writer gave her the PC office phone number if she needed some support or had questions. After this conversation with Man's ex -, this process description writer spoke with Man Caruso's nurse, who reports that Deidra has come into the hospital and has appeared "To be high." Updated Linda Corona CM RN, with pt's wishes to go home with hospice and concern for possible drug use in the home. Linda states hospice will not be able to care for pt unless pt has a safe place to discharge to. Linda states she will follow up with pt tomorrow. Updated Dr. Nunez on conversation with Gene and family re: hospice and possible durg use in his home. Nursing updated again that CM and MD are aware of concerns. PC to continue to follow pt for symptom management, care planning, education and support.
[2018-05-22 16:11] LABS: Hematocrit 20.6 % (37.0-53.0); Hemoglobin 7.2 g/dL (13.5-17.5)
--- NOTE | 2018-05-22 16:19 | NUR ---
UPDATE Call placed to Dr Nunez to update of H&H results.
--- NOTE | 2018-05-22 19:54 | NUR ---
SHIFT SUMMARY Pt ambulated about 100 feet this shift accompanied by this RN, Pt was weak but tolerated the activity well. Pt motivated to be up and moving. Noticable decline in mood noted after Dr Nunez spoke to patient and stated that pt is not progressing in the right direction. This RN spoke to palliative care nurse, Linda. When notified that pt may not be able to go home on hospice as the family verbalized concerns about Deidra safely administering medications, this RN told Linda about statements previously made by Deidra "I'm a stoner, you have to explain that to me again" and "Sorry, I'm super high right now". Deidra has also entered pt's room after being gone for about 30 minutes, stating that she "did dabs" with another person. Pt's ex and their children have been at the bedside for entire shift, highly involved and helpful with patient's care. Pt's ex and family members are highly compliant of boundaries set by staff (i.e. pt calling for staff assist before getting out of bed). Report given to oncoming LITA Mays.
[2018-05-23 04:12] LABS: Hematocrit 26.8 % (37.0-53.0); Hemoglobin 9.2 g/dL (13.5-17.5); Mean Corpuscular HGB 31.9 pg (26.0-34.0); Mean Corpuscular HGB Conc 34.3 g/dL (31.5-36.5); Mean Corpuscular Volume 93 fL (80-100); Mean Platelet Volume 9.9 fL (9.1-12.4); Platelet Count 116 K/mm3 (150-400); RDW Coefficient Variation 18.4 % (11.7-14.2); Red Blood Cell Count 2.88 M/mm3 (4.30-5.90); White Blood Cell Count 9.97 K/mm3 (4.00-11.30)
--- NOTE | 2018-05-23 04:19 | NUR ---
SHIFT SUMMARY: PATIENT ADMINISTERED X1 UNIT OF BLOOD PER MD ORDERS AND D/T HGB OF 7.2. MORNING LAB DRAW POST INFUSION WAS HGB OF 9.2. PATIENT SLEEPING WELL THIS SHIFT BUT BLOOD PRESSURES STAY LOW, BLE EDEMA APPEARS TO BE WORSE THAN PREVIOUS NURSE OBSERVATION, LUNGS HAVE FINE CRACKLES VERIFIED WITH RT. PATIENT HAD AT APPROX 1930. PATIENTS STAYED AT BEDSIDE, BED LOW AND LOCKED WITH EXIT ALARM ON, CALL LIGHT WITHIN REACH AND USED APPROPRIATLY, PATIENT MONITORED CLOSELY. CARE ADMINISTERED BY STAFF WITHIN ROLE/SCOPE OF PRACTICE AND ACCORDING TO MD ORDERS.
[2018-05-23 04:28] LABS: Albumin, Blood 2.4 g/dL (3.4-5.0); Anion Gap 11 mmol/L (6-16); Blood Urea Nitrogen 55 mg/dL (8-24); Bun/Creatinine Ratio 15.5 (12.0-20.0); CO2, Blood 24 mmol/L (21-32); Chloride, Blood 99 mmol/L (98-108); Creatinine, Blood 3.54 mg/dL (0.60-1.20); Glomerular Filtration Rate 20 (60-); Glucose, Blood 86 mg/dL (70-99); Phosphorus, Blood 5.2 mg/dL (2.5-4.9); Sodium, Blood 134 mmol/L (136-145)
[2018-05-23 16:16] LABS: Source, Urine Catheter
[2018-05-23 16:54] LABS: Blood, Urine 1+ (Neg); Glucose Qualitative, Urine Neg (Neg); Ketones, Urine Neg (Neg); Leukocyte Esterase, Urine Neg (Neg); Nitrite, Urine Neg (Neg); Protein, Urine Neg (Neg); Urobilinogen, Urine NORM (Normal)
[2018-05-23 16:55] LABS: Bilirubin, Urine 1+ (Neg)
[2018-05-23 16:56] LABS: Appearance, Urine Hazy (Clear); Color, Urine Yellow (P-Yellow); Squamous Epithelial Cells Rare /hpf (Few)
[2018-05-23 16:57] LABS: Bacteria Not Seen /hpf; Red Blood Cells, Urine 0-2 /hpf (0-2); White Blood Cells, Urine Not Seen /hpf (0-5)
--- NOTE | 2018-05-23 17:00 | NUR ---
PT BECOMING MORE AND MORE AGITATED. UP AND DOWN STATES HE NEEDS TO PEE. ATTEMPTING TO USE URINAL AT BEDSIDE THEN UNABLE TO URINATE IN THE URINAL. BLADDER SCAN DONE [address] ELLIS UPDATED. ORDER FOR TRANSFER TO ICU AND FOR A HAN. PT STILL UNABLE TO URINATE. 14 GABONESE HAN PLACED USING STERILE TECHNIQUE. UA/C&S SENT. REPORT CALLED TO CITLALLI LONDON IN ICU. PT TRANSFERED VIA BED TO ICU WITH BELONGINGS. PT TRANSFERED TO ICU BED AND CONTINUE TO FIGHT AND TRY TO GET OUT OF BED. FAMILY UPDATED OF STATUS.
--- NOTE | 2018-05-23 17:01 | NUR ---
RECEIVED REPORT AND ASSUMED CARE OF PATIENT. PT NEURO FINDINGS, NOT FOLLOWING DIRECTIONS, AGITATED AND YELLING OUT. PT SWINGING AND KICKING TOWARD NURSES. ABLE TO GET POSITIONED IN BED AND BROOKS VEST PLACED ON PATIENT FOR SAFETY. HAN IN PLACE DRAINING TO GRAVITY. SANDOSTATIN RUNNING AT 25 ML/HOUR, PROTONIX RUNNING AT 10 ML/HR. PT APPEAR JAUNDICE AND ABDOMEN IS MODERATELY DISTENDED.
--- NOTE | 2018-05-23 18:15 | NUR ---
PT BARRON AT BEDSIDE, SHE STATES SHE DOES NOT KNOW WHAT COMFORT CARE IS AND IS UPSET ABOUT SITUATION AND CONTINUED TREATMENT, SHE WANTS MEDICATIONS, BUT THEN STATES THE PATIENT IS DNR AND SHE DOESN'T WANT HIM TO BE IN PAIN. CORDWOOD CUTTER HELPERKYUNG BOB AT BEDSIDE TO SPEAK WITH PT AND EXPLAIN COMFORT CARE AND DISCONTINUING INVASIVE TREATMENTS. THIS RN AND CORDWOOD CUTTER HELPER LISBETH EXPLAIN THE SITUATION AND CO-MORBIDITIES. STATES SHE DOES NOT WANT INVASIVE TREATMENTS AT THIS TIME UNTIL SHE CAN SPEAK WITH HER MOTHER, WHO IS THE DECISION MAKER. THEREFORE, MEDICATIONS AND TREATMENTS ARE BEING HELD AT THIS TIME PENDING DECISION FOR AND/OR MOTHER IN LAW.
--- NOTE | 2018-05-23 19:01 | NUR ---
COMFORT CARE AFTER LENGTHY DISCUSSION WITH PT'S AND MOTHER IN LAW AT BEDSIDE ABOUT CONTINUED TREATMENT FOR THE PT, THEY HAVE EXPRESSED THAT THE PT WOULD NOT WANT FURTHER AGGRESSIVE TREATMENT MEASURES AND HAS STATED MULTIPLE TIMES THAT HE "JUST WANTS TO GO HOME". PT'S STATES SHE WANTS TO MAKE THAT HAPPEN AND WOULD LIKE THE PT TO TRANSITION TO COMFORT CARE AND HOPEFULLY BE ABLE TO GO HOME ON HOSPICE, THOUGH SHE UNDERSTANDS THAT THE PT MAY NOT BE ABLE TO MAKE IT OUT OF THE HOSPITAL IN TIME TO MAKE THAT HAPPEN. PT'S AND MOTHER IN LAW STATE UNDERSTANDING THAT STOPPING TREATMENTS AND TRANSITION TO COMFORT CARE MEANS THE PT WILL , AND THEY ARE AGREEABLE TO THIS. CALL TO DR. ELLIS WITH THIS INFORMATION AND ORDERS OBTAINED FOR COMFORT CARE MEASURES AT THIS TIME.
--- NOTE | 2018-05-23 19:10 | NUR ---
Numerous visits with this family today. Many are tearful and angry at Man's , Cami. Cami appears altered--unable to focus, make decisions, or grasp what is going on with Gene. Many conversations with small groups of loved ones outside of room. Provided counselor at law and comfort. Once Man was moved to ICU, I met with Cami and RN to discuss POC. Cami was unreasonable in her expectaions. One moment expressing understanding that Man is nearing end-of-life, but also requesting we continue medical treatment to make him stronger. She was fidgety, and had trouble focusing. It was recommended by family that Cami call her mother for counselor at law. Cami's mom arrived and finally all in agreement to make Man comfortable, stopping invasive treatment, and allowing a natural . Counseled remaining family outside of room. They were grateful he is going to pass comfortably. I will remain available.
--- NOTE | 2018-05-23 19:15 | NUR ---
ASSUMED CARE REPORT RECIEVED FROM LITA LENNON. PT HAS JUST BEEN MADE COMFORT CARE AT THIS TIME. COMFORT CARE ORDERS INITIATED BY DAY SHIFT RN. PT FAMILY IN ROOM AT THIS TIME. UPDATED THEM TO PLAN OF CARE. IV DRIPS AND BROOKS VEST RESTRAINT DISCONTINUED AT THIS TIME. PT IS OBTUNDED UPON ENTERING ROOM, BUT AROUSES TO STIMULI OF DISCONTINUING IV'S AND BECOMES AGITATED AND ATTEMPTING TO HIT STAFF. PT THEN GOES BACK TO OBTUNDED STATE AND APPEARS COMFORTABLE AT THIS TIME. HAN CATHETER REMAINS IN PLACE FOR PT COMFORT. PT ON ROOM AIR. WILL CONTINUE TO MONITOR.
--- NOTE | 2018-05-23 19:19 | NUR ---
GAVE REPORT TO LITA BRICE. PT FAMILY CHANGED STATUS TO COMFORT CARE AND ORDERS HAVE BEEN ENTERED PER DR. ELLIS.
--- NOTE | 2018-05-24 05:38 | NUR ---
SHIFT SUMMARY NO ACUTE CHANGES THIS SHIFT. PT HAS REMAINED QUIET AND APPEARS COMFORTABLE. PT MED FOR PAIN ONCE. MULTIPLE FAMILY MEMBERS HAVE BEEN IN AND OUT OF THE ROOM THROUGHOUT THE NIGHT. HAN REMAINS IN PLACE. WILL CONTINUE TO MONITOR AND REPORT OFF TO ONCOMING RN.
--- NOTE | 2018-05-24 07:30 | NUR ---
PATIENT ON COMFORT CARE STATUS; FAMILY MEMBERS IN ROOM AND SUPPORTIVE. SPOUSE WENT HOME ABOUT 0200 TO REST. PATIENT STUPEROUS; ROUSES TO LOUD VERBAL STIMULI BY OPENING EYES THEN BACK TO SLEEP. IV SITES X4 SALINE LOCKED.
--- NOTE | 2018-05-24 08:00 | NUR ---
DR. ELLIS S. HERE; SPOKE WITH FAMILY AND LISTENED; VERY SUPPORTIVE. FAMILY WANTING TO TAKE PATIENT HOME, ON HOSPICE, TO PASS AWAY PER HIS WISHES A FEW DAYS AGO.
--- NOTE | 2018-05-24 12:30 | NUR ---
SPOUSE AND [id number] ARRIVED AND WANTING TO SPEECH TO SHELBY, FROM CARE MANAGEMENT. DAUGHTERS, SISTER, ETC ALSO ON HAND.
--- NOTE | 2018-05-24 14:00 | NUR ---
SPOUSE ADAMANT SHE DOES NOT WANT TO WAIT TO TAKE PATIENT HOME TOMORROW EVEN THOUGH HOSPICE CAN NOT MAKE VISIT TIL TOMORROW AND ? IF BED CAN BE DELIVERED; LITA RYAN TO WORK ON DISCHARGE PLAN FOR TODAY.
--- NOTE | 2018-05-24 15:00 | NUR ---
SHELBY FROM CARE MANAGEMENT STATES PATIENT IS SETUP TO BE TRANSFERRED BY [facility] AT 16:30 TO BE TAKEN HOME (ADDRESS TO GO HOME IS DIFFERENT THAN WHAT IS ON FACE SHEET--[facility],OR [facility]). ROXANOL RX GIVEN TO PATIENTS' SPOUSE TO HAVE FILLED; SHE WILL LEAVE NOW TO GET IF FILLED.
[2018-05-24] MEDS ORDERED: ATROPINE SULFATE2 ML SL (15:46)
[2018-05-24] MEDS ORDERED: Transderm-Scop1 EACH TOP (15:49)
[2018-05-24] MEDS ORDERED: MORP20L SL (15:52)
--- NOTE | 2018-05-24 16:25 | NUR ---
UNABLE TO LOCATE SPOUSE; AMBULANCE TO ARRIVE; RN INSTRUCTED PATIENTS' 2 DAUGHTERS AND SISTER ON MED MANAGEMENT, ETC AND INFORMED THAT [facility] TO BRING HOSPITAL BED THIS PM. [facility] TO ARRIVE TOMORROW. INSTRUCTIONS GIVEN WITH UNDERSTANDING VERBALIZED AND ADULT DAUGHTER SIGNED SHE UNDERSTOOD.
--- NOTE | 2018-05-24 16:30 | NUR ---
MS 2MG IV BEFORE REMOVING IV'S. PATIENT SPOUSE ARRIVED RN GAVE MEDICATION.
--- NOTE | 2018-05-24 16:32 | NUR ---
AMBULANCE CREW ARRIVED; ASSISTED RN TO D/C IV'S; ALL INTACT. RN HAD TO GET RX FROM DR. ELLIS WITH DNR ORDER; REQUIRED BY AMBULANCE SERVICE.
--- NOTE | 2018-05-24 17:00 | NUR ---
PATIENT GENTLY MOVED FROM BED TO [facility] AND DISCHARGED TO HOME AT THIS TIME. BELONGINGS, INSTRUCTIONS ETC WITH SPOUSE.
== END 2018-05-24 17:00 | disposition hospice, home (50) | DRG 871 ==
LOC: ER 15:42 → MEDS 21:26 → ER 22:11 → MEDS 22:17 → ICUE 05-16 13:20 → MEDS 05-17 13:24 → PCU 05-20 13:58 → ICUE 05-23 16:33
PROVIDERS: Family Medicine; Internal Medicine; Internal Medicine Gastroenterology; Physician Assistant; ADMIT Hospitalist
PROC: 0DB68ZX Excision of Stomach, Via Natural or Artificial Opening Endoscopic, Diagnostic (ICD-10-PCS; principal; 2018-05-16 14:30)
PROC: 30233N1 Transfusion of Nonautologous Red Blood Cells into Peripheral Vein, Percutaneous Approach (ICD-10-PCS; 2018-05-18)
PROC: 0W9G3ZZ Drainage of Peritoneal Cavity, Percutaneous Approach (ICD-10-PCS; 2018-05-18)
DX: A41.9 Sepsis, unspecified organism (principal); K22.11 Ulcer of esophagus with bleeding; N17.0 Acute kidney failure with tubular necrosis; J69.0 Pneumonitis due to inhalation of food and vomit; K76.7 Hepatorenal syndrome; I42.8 Other cardiomyopathies; K76.6 Portal hypertension; A04.5 Campylobacter enteritis; D62 Acute posthemorrhagic anemia; E46 Unspecified protein-calorie malnutrition; K92.0 Hematemesis; E72.20 Disorder of urea cycle metabolism, unspecified; J44.9 Chronic obstructive pulmonary disease, unspecified; F17.210 Nicotine dependence, cigarettes, uncomplicated; K70.31 Alcoholic cirrhosis of liver with ascites; G40.909 Epilepsy, unspecified, not intractable, without status epilepticus; B19.20 Unspecified viral hepatitis C without hepatic coma; F10.10 Alcohol abuse, uncomplicated; J45.909 Unspecified asthma, uncomplicated; N26.1 Atrophy of kidney (terminal); N18.2 Chronic kidney disease, stage 2 (mild); I12.9 Hypertensive chronic kidney disease with stage 1 through stage 4 chronic kidney disease, or unspecified chronic kidney disease; E87.5 Hyperkalemia; K72.90 Hepatic failure, unspecified without coma; R45.1 Restlessness and agitation; F41.9 Anxiety disorder, unspecified
CPT/HCPCS: 36415; 36430; 49083; 71260; 74022; 74176; 74177; 76705; 80048; 80053; 80069; 81001; 82040; 82140; 82330; 82550; 83605; 83615; 83690; 84157; 84300; 85014; 85018; 85025; 85027; 85049; 85610; 86850; 86900; 86901; 86923; 87040; 87070; 87205; 87507; 88305; 88342; 89051; 90686; 94640; 94760; 96361; 96374; 99285-25; C9113; J0696; J1430; J1650; J1815; J2270; J2405; J3010; J3430; J7030; J7050; J7070; J7120; P9016; P9046; Q9967